=== PATIENT | female | born 1985 | race Caucasian/White ===

== ENCOUNTER → 2017-05-30 | Outpatient (CLI) | payer BC ==
[~2017-05-30] MED LIST: MTR600X PO; OXYC-57 PO; PRENTAB26 PO
[2017-05-30 16:28] LABS: BASO % 0.3 %; BASO ABS # 0.02 K/uL (0-0.2); COMPLETE YES; EOS % 1.3 %; HEMATOCRIT 35.5 % (37-47); IG% 0.1 %; LYMPH % 18.4 %; LYMPH ABS # 1.31 K/uL (1.2-3.4); MEAN CELL VOLUME 87.2 fL (80-100); MEAN CORPUSCULAR HEMOGLOBIN 29.2 pg (25-34); MEAN CORPUSCULAR HGB CONC 33.5 g/dl (32-36); NEUT % 73.9 %; PLATELET COUNT 216 K/uL (130-400); RED BLOOD COUNT 4.07 M/uL (4.2-5.4); WHITE BLOOD COUNT 7.13 K/uL (4.8-10.8)
[2017-05-30 18:01] LABS: URINE APPEARANCE CLEAR (CLEAR); URINE BILIRUBIN NEG (NEG); URINE COLOR YELLOW; URINE NITRITE NEG (NEG); URINE SPECIFIC GRAVITY 1.016 (1.000-1.030); UROBILINOGEN NEG (NEG)
[2017-05-30 18:06] LABS: MANUAL MICROSCOPIC REQUIRED? NO; REVIEW REQ? NO
[2017-06-02 00:58] LABS: CHLAMYDIA TRACH RNA*** NOT DETECTED (NOT DETECTED); GC (NEIS GONORRHOEAE)RNA** NOT DETECTED (NOT DETECTED)
== END | disposition home or self-care (01) ==
LOC: C.LAB1850 15:17
PROVIDERS: ATTEND Obstetrics & Gynecology
DX: Z34.81 Encounter for supervision of other normal pregnancy, first trimester (principal)

== ENCOUNTER → 2017-07-25 | Outpatient (CLI) | payer BC ==
[2017-07-25 19:10] LABS: GTGD 50 Grams
== END | disposition home or self-care (01) ==
LOC: C.LAB1850 13:48
PROVIDERS: ATTEND Obstetrics & Gynecology
DX: Z34.82 Encounter for supervision of other normal pregnancy, second trimester (principal); Z3A.00 Weeks of gestation of pregnancy not specified

== ENCOUNTER → 2017-10-17 | Outpatient (CLI) | payer BC ==
[2017-10-17 18:19] LABS: URINE APPEARANCE CLEAR (CLEAR); URINE BILIRUBIN NEG (NEG); URINE COLOR YELLOW; URINE EPITHELIAL CELL AUTO >30 /lpf (0-5); URINE NITRITE NEG (NEG); URINE SPECIFIC GRAVITY 1.017 (1.000-1.030); UROBILINOGEN NEG (NEG)
[2017-10-17 18:32] LABS: MANUAL MICROSCOPIC REQUIRED? NO; REVIEW REQ? NO
== END | disposition home or self-care (01) ==
LOC: C.LABSPEC 17:23
PROVIDERS: ATTEND Obstetrics & Gynecology
DX: Z34.83 Encounter for supervision of other normal pregnancy, third trimester (principal)

== ENCOUNTER → 2017-10-26 | Outpatient (CLI) | payer BC ==
[2017-10-26 13:09] LABS: HEMATOCRIT 34.3 % (37-47); HEMOGLOBIN 11.6 g/dL (12.0-16.0)
== END | disposition home or self-care (01) ==
LOC: C.LAB1850 10:46
PROVIDERS: ATTEND Obstetrics & Gynecology
DX: Z34.83 Encounter for supervision of other normal pregnancy, third trimester (principal)

== ENCOUNTER → 2017-12-15 | Outpatient (CLI) | payer BC | END | disposition home or self-care (01) | LOC: C.LABSPEC 17:37 | PROVIDERS: ATTEND Obstetrics & Gynecology | DX: Z34.83 Encounter for supervision of other normal pregnancy, third trimester (principal) ==

== ENCOUNTER 2018-01-01 05:18 | Inpatient (IN) | payer BC ==
[2017-12-29 16:14] LABS: BASO % 0.2 %; BASO ABS # 0.02 K/uL (0-0.2); EOS % 0.7 %; EOS ABS # 0.08 K/uL (0-0.5); HEMATOCRIT 34.8 % (37-47); HEMOGLOBIN 12.1 g/dL (12.0-16.0); IG# 0.06 K/uL (0.00-0.02); LYMPH % 14.4 %; LYMPH ABS # 1.61 K/uL (1.2-3.4); MEAN CELL VOLUME 89.5 fL (80-100); MEAN CORPUSCULAR HEMOGLOBIN 31.1 pg (25-34); MEAN CORPUSCULAR HGB CONC 34.8 g/dl (32-36); MONO % 6.1 %; MONO ABS # 0.68 K/uL (0.11-0.59); NEUT % 78.1 %; NEUT ABS # 8.71 K/uL (1.4-6.5); PLATELET COUNT 165 K/uL (130-400); RED CELL DISTRIBUTION WIDTH CV 13.9 % (11.5-14.5); RED CELL DISTRIBUTION WIDTH SD 45.4 fL (36.4-46.3); WHITE BLOOD COUNT 11.16 K/uL (4.8-10.8)
--- NOTE | 2017-12-29 17:23 | HISTORY & PHYSICAL EXAMINATION ---
DATE OF ADMISSION: 01/01/2018 PRINCIPAL DIAGNOSES: Intrauterine at 39 weeks, prior section x2. PRINCIPAL PROCEDURE: Repeat low transverse section. HISTORY OF PRESENT ILLNESS: The patient is a 32-year-old 5, para 2-0-2-2 white female, EDC of 01/06/2018 who presents for repeat section on 01/01/2018 at 39 weeks. First section was done because of a failed vacuum attempt and arrest of descent. She is requesting repeat section after her prior section was done as an elective repeat. has otherwise been uncomplicated. She understands the risks of the procedure, all her questions have been answered and she is willing to proceed. 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 PAST SURGICAL HISTORY: section x2 and ovarian cystectomy done. OBSTETRICAL AND GYNECOLOGICAL HISTORY: Periods are every 25 to 26 days. No history of PID, VD or herpes. Pap smears have been normal. 2009, delivery of a 7 pound 11 ounce viable female by section after failed vacuum attempt in May and in July 2014, there was some miscarriages that were spontaneous and did not require any intervention. 2014, a repeat section at 39 weeks for delivery of an 8 pound 3 ounce female. HISTORY: Blood type is A negative, antibody screen is negative. Rubella is immune. RPR is nonreactive. Hepatitis is negative. HIV is negative. Chlamydia and GC are negative. Glucolas have been within normal limits. Hemoglobin at 28 weeks is 11.6 and hematocrit 34.3. She received RhoGAM on 11/02/2017. GBS is negative. Anatomy scan is complete and normal. SOCIAL HISTORY: She does not smoke or drink. FAMILY HISTORY: Noncontributory. PHYSICAL EXAMINATION: VITAL SIGNS: Blood pressure is 118/74. GENERAL: She is a well-nourished, well-developed female in no apparent distress. LUNGS: Clear to auscultation. HEART: Regular rate and rhythm. No murmurs or gallops. ABDOMEN: Gravid, fundal height of 39 cm. She has a well-healed low transverse skin incision. EXTREMITIES: Without cyanosis or edema. There is no calf tenderness present. PELVIC: Declined. ASSESSMENT: A 32-year-old presenting for repeat section. She has had 2 prior sections. The procedure and risks were discussed with the patient at length and all her questions were answered. Please see the orders for further directions. MTDD
[2018-01-01] VITALS (15 sets, daily range): BP systolic 107–129; BP diastolic 63–76; PULSE 76–91; TEMP 36.8–37.1; O2SAT 96–100; Ht 162.6 cm; Wt 81.7 kg
[~2018-01-01] VITALS: Ht 162.6 cm; Wt 81.7 kg
[~2018-01-01 05:18] MED LIST changes: -MTR600X PO; -OXYC-57 PO
[2018-01-01] MEDS: LACTATED RINGER'S 1000ML 1,000 ML IV SCH ×2 (05:44→06:48)
[2018-01-01 05:46] LABS: BASO % 0.1 %; BASO ABS # 0.01 K/uL (0-0.2); EOS % 0.6 %; EOS ABS # 0.05 K/uL (0-0.5); HEMATOCRIT 35.9 % (37-47); HEMOGLOBIN 11.8 g/dL (12.0-16.0); IG# 0.04 K/uL (0.00-0.02); LYMPH % 15.6 %; LYMPH ABS # 1.36 K/uL (1.2-3.4); MEAN CELL VOLUME 90.2 fL (80-100); MEAN CORPUSCULAR HEMOGLOBIN 29.6 pg (25-34); MEAN PLATELET VOLUME 10.2 fL (7.4-10.4); MONO % 6.3 %; MONO ABS # 0.55 K/uL (0.11-0.59); NEUT % 76.9 %; NEUT ABS # 6.69 K/uL (1.4-6.5); PLATELET COUNT 157 K/uL (130-400); RED CELL DISTRIBUTION WIDTH CV 13.8 % (11.5-14.5); RED CELL DISTRIBUTION WIDTH SD 45.5 fL (36.4-46.3)
[2018-01-01 05:54] LABS: MEAN CORPUSCULAR HGB CONC 32.9 g/dl (32-36)
[2018-01-01] MEDS ORDERED: CITRIC ACID/SODIUM CITRATE 15 ML UDC PO SCH (06:00)
[2018-01-01] MEDS ORDERED: CEFAZOLIN IV 2,000 MG in SYRINGE 0 ML IV SCH (06:00)
[2018-01-01] MEDS ORDERED: MoRPHine SULFATE PF 1 MG/ML 10 ML AMP/VIAL ONE (06:59)
[2018-01-01] MEDS ORDERED: NALOXONE HCL INJ 1 MG in SODIUM CHLORIDE 0.9% 1000ML 1,000 ML IV PRN ×5 (07:14→07:16)
[2018-01-01] MEDS ORDERED: ATROPINE SULFATE 0.1 MG/ML 5ML SYR IV PRN (07:15)
[2018-01-01] MEDS ORDERED: EpHEDrine SULFATE INJ 50 MG/ML AMP IV PRN ×2 (07:15→07:30)
[2018-01-01] MEDS ORDERED: ONDANSETRON INJ 2 MG/ML 2 ML VIAL IV PRN ×2 (07:15→07:30)
[2018-01-01] MEDS ORDERED: MEPERIDINE HCL 25 MG/ML CARP IV PRN ×2 (07:15→07:30)
[2018-01-01] MEDS ORDERED: PHENYLEPHRINE 100MCG/ML 5ML SYR IV PRN (07:15)
[2018-01-01] MEDS ORDERED: KETOROLAC TROMETHAMINE 30 MG/ML VIAL IV. PRN ×2 (07:15→07:30)
[2018-01-01] MEDS ORDERED: LACTATED RINGER'S 1000ML 500 ML IV PRN (07:16)
[2018-01-01] MEDS ORDERED: SODIUM CHLORIDE 0.9% 1000ML 1,000 ML IV PRN (07:16)
[2018-01-01] MEDS ORDERED: NALOXONE HCL INJ 0.08 MG in SYRINGE 1.8 ML IV PRN (07:16)
--- NOTE | 2018-01-01 07:23 | History & Physical Bridge Note ---
H&P Re-Evaluation Bridge Note: I have examined the patient, reviewed the History & Physical and in the interval since the performance of the History & Physical I have noted the following changes of clinical significance: No changes noted
[2018-01-01] MEDS ORDERED: NO NARCOTICS OR SEDATIVES SCH (07:30)
[2018-01-01] MEDS ORDERED: MoRPHine SULFATE PF 1 MG/ML 10 ML AMP/VIAL EPI PRN (07:30)
[2018-01-01] MEDS ORDERED: PROMETHAZINE HCL INJ 12.5 MG in SODIUM CHLORIDE 0.9% 50ML 50 ML IV PRN (07:30)
[2018-01-01] MEDS ORDERED: NALBUPHINE HCL INJ 10 MG/ML AMP IV PRN (07:30)
[2018-01-01] MEDS ORDERED: DiphenhydrAMINE HCL 50 MG/ML VIAL IV PRN (07:30)
[2018-01-01] MEDS ORDERED: NALOXONE HCL 0.4 MG/1 ML VIAL/CARP IV PRN (07:30)
[2018-01-01] MEDS ORDERED: ONDANSETRON INJ 2 MG/ML 2 ML VIAL ONE (07:56)
[2018-01-01] MEDS ORDERED: PHENYLEPHRINE 100MCG/ML 5ML SYR ONE (07:56)
[2018-01-01] MEDS ORDERED: PROPOFOL IV EMULSION 10 MG/ML 20 ML VIAL IV ONE (07:56)
[2018-01-01] MEDS ORDERED: EpHEDrine SULFATE 50MG/5ML SYR ONE (07:56)
[2018-01-01] MEDS ORDERED: METOCLOPRAMIDE HCL INJ 5 MG/ML 2 ML VIAL ONE (07:56)
[2018-01-01] MEDS ORDERED: OXYTOCIN INJ 10 UNITS/ML VIAL ONE (08:20)
[2018-01-01] MEDS ORDERED: LANOLIN OINT EXT PRN ×2 (08:30→11:00)
[2018-01-01] MEDS ORDERED: ACETAMINOPHEN 325 MG TAB PO PRN (08:30)
[2018-01-01] MEDS ORDERED: OXYTOCIN 30 UNITS/500ML NSS IV PRN (08:30)
--- NOTE | 2018-01-01 08:44 | [facility] Post Operative Brief Note ---
Immediate Operative Summary Operative Date Jan 01, 2018. Pre-Operative Diagnosis Term , Previous Caesarean section x 2,desire for repeat Caesarean section Post-Operative Diagnosis same with delivery of living male child at 0801 Procedure(s) Performed Repeat Low Transverse Caesarean Section Surgeon Dr. Paulina Chamorro B2B Account Executive Surgeon(s) Dr. Rosanne Long Estimated Blood Loss 500 Findings Consistent with Post-Op Diagnosis Fluids (cc crystalloids) 3000 Specimens a. placenta- hold b. cord blood specimen Drains Zuniga to stratight drainage Anesthesia Type Spinal Complication(s) none Disposition Accompanied Pt To Recover: no Disposition: L&D
--- NOTE | 2018-01-01 09:58 | OPERATIVE REPORT ---
DATE OF OPERATION: 01/01/2018 SURGEON: Dr. Paulina Lieberman. PROFESSIONAL SERVICES SPECIALIST: Dr. Rosanne Long. PREOPERATIVE DIAGNOSES: Intrauterine at 39 weeks, prior section x2. POSTOPERATIVE DIAGNOSES: Same plus delivery of a viable male infant, 7 pounds 13 ounces, Apgars 9 and 9. OPERATIVE PROCEDURE: Repeat low transverse cervical section. ESTIMATED BLOOD LOSS: 500 mL. ANESTHESIA: Subarachnoid block. HISTORY: The patient is a 32-year-old 5, para 2-0-2-2 white female, EDC of 01/06/2018 who presents for repeat section. Her prior section was done for arrest of descent and a repeat with her last . She understands the risks of procedure and is willing to proceed. GROSS FINDINGS: Uterus is gravid and consistent with a term in size. Bilateral ovaries and fallopian tubes are grossly normal. DESCRIPTION OF PROCEDURE: After the patient received adequate subarachnoid block, she was prepped and draped in the usual sterile fashion. A low transverse skin incision was made through her prior scar and carried to the fascia with the same scalpel. The fascial incision was then extended with Leroy scissors. The underlying rectus muscles were then bluntly and sharply dissected off the overlying fascia. The rectus muscles were bluntly divided along the midline and the underlying peritoneum elevated bluntly. The rectus muscles were divided on the midline with Leroy scissors. The bladder was then taken down off the lower uterine segment and placed behind the bladder blade. The lower uterine segment was entered with the scalpel and extended transversely. Clear fluid was obtained upon entering the uterine cavity. The was delivered with moderate fundal pressure and vacuum assistance. Mouth and nasopharynx were suctioned, there was spontaneous crying and the was vigorous upon delivery. Cord was clamped and cut after reducing a nuchal cord x2. The placenta was then manually removed and the fundus was covered with a clean lap sponge. The uterus was explored and found to be free of any placental tissue or membranes. The uterus was then closed in 2 layers in running locking imbricating fashion with 0 Monocryl. Hemostasis was noted to be excellent. The posterior cul-de-sac was then irrigated with normal saline. The uterus was placed back inside the abdominal cavity. The incision was examined once more and continued to have excellent hemostasis. The gutters were explored and there was scant fluid present in the left lateral gutter. The anterior cul-de-sac was also cleared of some clot. The rectus muscles were then brought together on the midline with individual stitches of 0 Monocryl. The fascia was closed in a running fashion with 0 Vicryl. The skin edges were reapproximated using a subcuticular stitch of 4-0 Vicryl. Urine was clear at the end of the case. Mother and were tolerated the procedure well and was stable upon arrival in recovery room. I attest to the content of the Intraoperative Record and any orders documented therein. Any exceptions are noted below. YASIRD
[2018-01-01] MEDS ORDERED: MAGNESIUM HYDROXIDE SUSP 30 ML UDC PO PRN (11:00)
[2018-01-01] MEDS ORDERED: IBUPROFEN 600 MG TAB PO PRN (11:00)
[2018-01-01] MEDS ORDERED: SENNA 8.6 MG TAB PO PRN (11:00)
[2018-01-01] MEDS: OXYTOCIN INJ 20 UNITS in LACTATED RINGER'S 1000ML 1,000 ML IV SCH ×2 (11:12→19:09)
--- NOTE | 2018-01-01 12:51 | Anesthesiology Progress Note ---
Anesthesia Post Op Note Date & Time Jan 01, 2018 at 12:51 Vital Signs Pain Intensity: 2.0 Vital Signs Past 12 Hours Date Time Temp Pulse Resp B/P (MAP) Pulse Ox O2 Delivery O2 Flow Rate FiO2 01/01/18 12:20 79 14 114/68 (83) 99 Room Air 01/01/18 12:20 14 99 01/01/18 11:20 37.1 76 18 109/71 (84) 98 Room Air 01/01/18 11:20 18 98 01/01/18 11:20 98 Room Air 01/01/18 11:20 98 Room Air Notes Mental Status: alert / awake / arousable, participated in evaluation Pt Amnestic to Procedure: Yes Nausea / Vomiting: adequately controlled Pain: adequately controlled Airway Patency, RR, SpO2: stable & adequate BP & HR: stable & adequate Hydration State: stable & adequate Anesthetic Complications: no major complications apparent
[2018-01-01] MEDS: SIMETHICONE 80 MG CHEW PO SCH ×3 (13:55→20:27)
[2018-01-01] MEDS: DOCUSATE SODIUM 100 MG CAP PO SCH ×2 (20:00→20:27)
[2018-01-01] MEDS: IBUPROFEN 600 MG TAB PO PRN (22:40)
[2018-01-02] MEDS ORDERED: DC INTRASPINAL MORPHINE ONE
[2018-01-02] MEDS ORDERED: ONDANSETRON INJ 2 MG/ML 2 ML VIAL IV PRN
[2018-01-02] MEDS ORDERED: MEPERIDINE HCL 50 MG/ML CARP IV PRN ×2
[2018-01-02] MEDS ORDERED: OXYCODONE/ACETAMINOPHEN 5-325 TAB PO PRN ×2
[2018-01-02] MEDS ORDERED: KETOROLAC TROMETHAMINE 30 MG/ML VIAL IV. PRN
[2018-01-02] MEDS ORDERED: DiphenhydrAMINE HCL 50 MG/ML VIAL IV PRN
[2018-01-02] MEDS ORDERED: PROMETHAZINE HCL INJ 25 MG in SODIUM CHLORIDE 0.9% 50ML 50 ML IV PRN ×2
[2018-01-02] MEDS ORDERED: ZOLPIDEM TARTRATE 5 MG TAB PO PRN
[2018-01-02] MEDS: OXYCODONE/ACETAMINOPHEN 5-325 TAB PO PRN ×5 (00:17→20:19)
[2018-01-02 03:25] VITALS: BP 100/76; PULSE 77; TEMP 36.9
[2018-01-02] MEDS: IBUPROFEN 600 MG TAB PO PRN ×4 (06:15→20:18)
[2018-01-02 06:37] LABS: BASO % 0.2 %; BASO ABS # 0.02 K/uL (0-0.2); EOS ABS # 0.11 K/uL (0-0.5); HEMATOCRIT 32.4 % (37-47); HEMOGLOBIN 11.3 g/dL (12.0-16.0); IG# 0.03 K/uL (0.00-0.02); LYMPH % 13.8 %; LYMPH ABS # 1.52 K/uL (1.2-3.4); MEAN CELL VOLUME 88.3 fL (80-100); MEAN CORPUSCULAR HEMOGLOBIN 30.8 pg (25-34); MEAN CORPUSCULAR HGB CONC 34.9 g/dl (32-36); MEAN PLATELET VOLUME 9.9 fL (7.4-10.4); MONO % 6.5 %; MONO ABS # 0.72 K/uL (0.11-0.59); NEUT % 78.2 %; NEUT ABS # 8.62 K/uL (1.4-6.5); PLATELET COUNT 153 K/uL (130-400); RED CELL DISTRIBUTION WIDTH CV 13.8 % (11.5-14.5); RED CELL DISTRIBUTION WIDTH SD 44.6 fL (36.4-46.3); WHITE BLOOD COUNT 11.02 K/uL (4.8-10.8)
--- NOTE | 2018-01-02 07:49 | Progress Note ---
Subjective Jan 02, 2018. Subjective conversation w/ patient, physical exam Voiding: no voiding problems Passing Gas: Yes Diet Tolerance: Regular Diet Lochia: Moderate Feeding Type: Bottle Feeding Review of Systems Breast: No see HPI, No breast lump, No change in shape, No nipple discharge, No breast pain, No problem reported Female : No see HPI, No dysuria, No urinary frequency, No hematuria, No incontinence, No abnormal vaginal bleeding, No vaginal discharge, No problem reported Objective Vital Signs Date Time Temp Pulse Resp B/P (MAP) Pulse Ox O2 Delivery O2 Flow Rate FiO2 01/02/18 03:25 36.9 77 18 100/76 (84) Room Air 01/01/18 23:55 37.0 82 18 114/74 (87) 96 Room Air 01/01/18 23:55 99 Room Air 01/01/18 23:20 18 99 01/01/18 22:20 18 97 01/01/18 21:20 18 97 01/01/18 20:20 18 96 01/01/18 20:20 36.8 79 18 108/72 (84) 96 Room Air 01/01/18 19:20 18 97 01/01/18 18:20 16 100 01/01/18 17:20 18 99 01/01/18 16:20 18 100 01/01/18 16:00 36.9 91 18 107/63 (78) 100 Room Air 01/01/18 16:00 100 Room Air 01/01/18 16:00 18 100 01/01/18 15:20 16 99 01/01/18 14:20 88 18 129/74 (92) 100 Room Air 01/01/18 14:20 18 100 01/01/18 13:20 87 16 122/76 (91) Room Air 01/01/18 13:20 16 100 01/01/18 12:20 79 14 114/68 (83) 99 Room Air 01/01/18 12:20 14 99 01/01/18 11:20 37.1 76 18 109/71 (84) 98 Room Air 01/01/18 11:20 18 98 01/01/18 11:20 98 Room Air 01/01/18 11:20 98 Room Air Physical Exam General Appearance: WELL-APPEARING, NO APPARENT DISTRESS Abdomen: soft Fundus: Firm, Non-Tender, Relation to Umbilicus (2 below U) Incision Description: Clean, Dry & Intact Extremities: no calf tenderness Laboratory Results Last 24 Hours Test 01/02/18 06:15 White Blood Count 11.02 K/uL Red Blood Count 3.67 M/uL Hemoglobin 11.3 g/dL Hematocrit 32.4 % Mean Corpuscular Volume 88.3 fL Mean Corpuscular Hemoglobin 30.8 pg Mean Corpuscular Hemoglobin Concent 34.9 g/dl Platelet Count 153 K/uL Mean Platelet Volume 9.9 fL Neutrophils (%) (Auto) 78.2 % Lymphocytes (%) (Auto) 13.8 % Monocytes (%) (Auto) 6.5 % Eosinophils (%) (Auto) 1.0 % Basophils (%) (Auto) 0.2 % Neutrophils # (Auto) 8.62 K/uL Lymphocytes # (Auto) 1.52 K/uL Monocytes # (Auto) 0.72 K/uL Eosinophils # (Auto) 0.11 K/uL Basophils # (Auto) 0.02 K/uL RDW Standard Deviation 44.6 fL RDW Coefficient of Variation 13.8 % Immature Granulocyte % (Auto) 0.3 % Immature Granulocyte # (Auto) 0.03 K/uL Assessment and Plan Day#: 1 Continue Routine Care: stable post-op course continue current care plan
[2018-01-02 08:19] VITALS: BP 110/73; PULSE 77; TEMP 36.8; O2SAT 96
[2018-01-02] MEDS: DOCUSATE SODIUM 100 MG CAP PO SCH ×2 (08:30→20:15)
[2018-01-02] MEDS: SIMETHICONE 80 MG CHEW PO SCH ×4 (08:30→20:18)
[2018-01-02 08:46] VITALS: O2SAT 96
--- NOTE | 2018-01-02 11:28 | Anesthesiology Progress Note ---
Anesthesia Post Op Note Date & Time Jan 02, 2018 at 11:27 Vital Signs Pain Intensity: 6.0 Vital Signs Past 12 Hours Date Time Temp Pulse Resp B/P (MAP) Pulse Ox O2 Delivery O2 Flow Rate FiO2 01/02/18 08:46 96 Room Air 01/02/18 08:19 36.8 77 110/73 (85) 96 Room Air 01/02/18 03:25 36.9 77 18 100/76 (84) Room Air 01/01/18 23:55 37.0 82 18 114/74 (87) 96 Room Air 01/01/18 23:55 99 Room Air Notes Awake, alert, satisfied with anesthesia care. VSS.
[2018-01-02 12:45] VITALS: BP 99/67; PULSE 78; TEMP 36.7; O2SAT 98
[2018-01-02 15:30] VITALS: BP 112/74; PULSE 82; TEMP 36.7; O2SAT 97
[2018-01-02] MEDS ORDERED: BISACODYL 5 MG TABEC PO SCH (20:00)
[2018-01-02] MEDS ORDERED: BISACODYL 5 MG TABEC PO ONE (22:00)
[2018-01-03 00:50] VITALS: BP 105/68; PULSE 84; TEMP 36.7
[2018-01-03] MEDS: IBUPROFEN 600 MG TAB PO PRN ×3 (06:09→16:52)
[2018-01-03] MEDS: OXYCODONE/ACETAMINOPHEN 5-325 TAB PO PRN ×3 (06:10→16:51)
--- NOTE | 2018-01-03 06:20 | OB/GYN Progress Note ---
INTERVENTIONAL TECHNOLOGIST Progress Note Date of Service Jan 03, 2018. Subjective conversation w/ patient, physical exam Ambulation: ambulating normally Voiding: no voiding problems Passing Gas: Yes Diet Tolerance: Regular Diet Lochia: Moderate Feeding Type: Bottle Feeding Pain: controlled Review of Systems Constitutional: No problem reported Respiratory: No problem reported Cardiac: No problem reported Breast: No problem reported Abdomen: No problem reported Female : No problem reported Objective Vital Signs Date Time Temp Pulse Resp B/P (MAP) Pulse Ox O2 Delivery O2 Flow Rate FiO2 01/03/18 00:50 36.7 84 16 105/68 (80) Room Air 01/03/18 00:50 Room Air 01/02/18 15:30 97 Room Air 01/02/18 15:30 36.7 82 18 112/74 (87) 97 Room Air 01/02/18 12:45 36.7 78 20 99/67 (78) 98 Room Air 01/02/18 08:46 96 Room Air 01/02/18 08:19 36.8 77 110/73 (85) 96 Room Air 01/02/18 07:55 Room Air Physical Exam General Appearance: WELL-APPEARING, NO APPARENT DISTRESS Respiratory/Chest: no respiratory distress Cardiovascular: regular rate, rhythm Abdomen: non tender, soft Fundus: Firm Incision Description: Clean, Dry & Intact Extremities: normal inspection Assessment and Plan Post-Op Day Number: 2 Continue Routine Care: Doing well POD#2. Anticipate discharge home tomorrow.
[2018-01-03] MEDS ORDERED: OXYC-57 PO (09:02)
[2018-01-03] MEDS: SIMETHICONE 80 MG CHEW PO SCH ×4 (09:16→19:46)
[2018-01-03] MEDS: DOCUSATE SODIUM 100 MG CAP PO SCH ×3 (09:17→20:00)
[2018-01-03 09:32] VITALS: BP 119/73; PULSE 79; TEMP 37; O2SAT 98
[2018-01-03 15:16] VITALS: BP 110/71; PULSE 79; TEMP 36.6; O2SAT 98
--- NOTE | 2018-01-03 22:02 | Discharge Instructions ---
Discharge Instructions Date of Service Jan 03, 2018. Admission Reason for Admission: with Hx of Section Discharge Discharge Diagnosis / Problem: after delivery Discharge Goals Goal(s): Routine recovery after Medications Continue Dispensed Medications: supercream, dermaplast, tucks, lansinoh Activity Recommendations Activity Limitations: as noted below ACTIVITY RECOMMENDATIONS: * Gradual return to full activity over the next 2-3 weeks. * No lifting - nothing heavier than baby over the next 2-3 weeks. * Do not engage in vigorous exercise, sexual activity or sports until cleared by your physician. * Do not drive or operate any motorized equipment until cleared by your physician. * You may shower/bathe daily. MEDICATIONS: For discomfort or pain, you may use Acetaminophen (Tylenol), Ibuprofen (Advil), or Naproxen (Aleve) following the package directions. For constipation you may use Colace following the package directions. BREAST CARE: If you are not breast feeding: * Wear a supportive bra 24 hours a day for one to two weeks. * Avoid stimulating your breasts and nipples as much as possible during the first few weeks after delivery. * When taking a shower, have the warm water hit your back, not breasts. * When your breasts feel full, apply ice packs. Usually three to four times a day helps ease the discomfort. * Take a mild pain medication (Tylenol / Motrin) when you are uncomfortable. If breast feeding: * Use breast milk to lubricate nipples. Lansinoh cream may be used for sore nipples. You do not need to remove cream prior to breast feeding. If using a different brand of cream, check the label for directions regarding removal of cream prior to nursing. * Wear a supportive bra. * If having problems with breasts or breast feeding, call a bridal consultant or your health care provider. SPECIAL CARE INSTRUCTIONS: When you are discharged from the hospital, it is important for you to follow the instructions listed below: * During the first week at home, you should be able to care for yourself and your baby. In addition, the usual light household activities are encouraged. * Limit your activities to the way you feel. Do not try to clean the house or move furniture. Be sensible. * If you actively engage in sports and have done so up until the time of your delivery, you may resume these activities as soon as you feel able. This may take up to one month or even longer. Use good judgment. * Continue to take your vitamins for at least six weeks after the of your baby. * Your diet need not be limited unless you were on a special diet before your delivery. Breast-feeding mothers need around 2500 calories per day and at least 64-80 ounces of fluid per day (8 to 10 glasses). * You should eat foods from the four major food groups. Crash diets or fad diets are to be avoided. Eating lean meats, fresh fruits and vegetables, low-fat dairy products, high fiber foods and a regular exercise program, will help you get back to your pre- weight without putting your health at risk. * Constipation is sometimes a problem after delivery. Take a mild laxative as needed. If breast feeding, Milk of Magnesia is acceptable to use. You may use a suppository or Fleets enema. * A daily shower or tub bath is suggested. Wash incision daily with warm soapy water and pat dry. It doesn't need to be covered unless drainage is present. * A bloody vaginal discharge will usually continue until around four weeks . A small amount of bleeding may continue for as long as six weeks. Vaginal discharge changes from the bright red bleeding after delivery to pink then brownish and finally yellowish-pink before becoming white and disappearing. * Bleeding may increase with activity. Your first period may come in 4-8 weeks. If you are breast feeding, your period may be delayed even longer. * [place] (sex) can begin whenever both you and your partner feel comfortable and do not have any form of genital infection. It is recommended that you wait at least six weeks for internal and external healing to occur. If you have questions, please talk to your health care practitioner. A condom should be used to prevent infection and . * Foreplay, gentle intercourse and lubrication is very important the first several times to prevent pain. A water-based lubricant such as K-Y jelly or Astroglide may be used. * If you have RH negative blood and your baby is RH positive, you will receive RHOGAM by injection prior to discharge. The nurse will give you a card to keep with you that has the date and place that you received RHOGAM after delivery. * During your care, you had a Rubella screen done to check for the presence of rubella antibodies in your blood. If your test was negative, you will receive a Rubella vaccine prior to discharge. This vaccine may cause a fever, soreness at the injection site and flu-like symptoms. If these symptoms persist, notify your health care practitioner. is not advised for one month after a Rubella vaccine. * Verbalizes understanding of car seat law as reviewed with patient nursing. * Car Seat hand-out given and reviewed with patient by nursing. * Shaken baby information reviewed with patient by nursing. Call you doctor if: * Heavy bleeding (saturating several pads an hour) or passing clots the size of your fist. * A fever >101 degrees F (38.3 degrees C) on two occasions four hours apart and /or chills. * Unusual pain in the pelvic or vaginal areas. * Call the doctor for any increased redness, drainage or swelling around the incision and any pain unrelieved by prescribed pain medication. * "Baby Blues" lasting longer than two weeks. If you have any questions or concerns, call your health care practitioner at . FOLLOW UP VISIT: * Please call the office at to schedule a 6 week examination. It is important you keep this appointment. It is important for you to make arrangements for either yearly or twice yearly check-ups thereafter. . Current Hospital Diet Patient's current hospital diet: Regular OB Diet Discharge Diet Recommended Diet: Regular Diet Procedures Procedures Performed: Repeat Low Transverse Caesarean Section Pending Studies Studies pending at discharge: no Medical Emergencies . Who to Call and When: Medical Emergencies: If at any time you feel your situation is an emergency, please call [phone] immediately. . Non-Emergent Contact Non-Emergency issues call your: [employer] . . "Provider Documentation" section prepared by Sherri Boyer. .
[2018-01-03 23:25] VITALS: BP 106/70; PULSE 68; TEMP 36.5; O2SAT 98
[2018-01-04] MEDS: OXYCODONE/ACETAMINOPHEN 5-325 TAB PO PRN ×3 (03:25→12:31)
[2018-01-04 07:20] VITALS: BP 116/75; PULSE 85; TEMP 36.9; O2SAT 99
--- NOTE | 2018-01-04 08:09 | Progress Note ---
Subjective Jan 04, 2018. Subjective conversation w/ patient, physical exam Ambulation: ambulating normally Voiding: no voiding problems Passing Gas: Yes Diet Tolerance: Regular Diet Lochia: Small Feeding Type: Breast Feeding Pain: no pain issues, using pain meds. Objective Vital Signs Date Time Temp Pulse Resp B/P (MAP) Pulse Ox O2 Delivery O2 Flow Rate FiO2 01/03/18 23:25 98 Room Air 01/03/18 23:25 36.5 68 16 106/70 (82) 98 Room Air 01/03/18 15:16 98 Room Air 01/03/18 15:16 36.6 79 18 110/71 (84) 98 Room Air 01/03/18 09:32 37.0 79 20 119/73 (88) 98 Room Air Physical Exam General Appearance: WELL-APPEARING, WD/WN, NO APPARENT DISTRESS Respiratory/Chest: lungs clear Cardiovascular: regular rate, rhythm Abdomen: non tender, soft Fundus: Firm, Relation to Umbilicus (2 down) Incision Description: Clean, Dry & Intact Extremities: non-tender Assessment and Plan Post-Op Day#: 3 Continue Routine Care: stable, d/c home, instructions reviewed. f/u 6 wks pp check. has percocet script already from Dr. Collado.
[2018-01-04] MEDS: DOCUSATE SODIUM 100 MG CAP PO SCH (08:48)
[2018-01-04] MEDS: SIMETHICONE 80 MG CHEW PO SCH ×2 (08:48→12:30)
[2018-01-04] MEDS: IBUPROFEN 600 MG TAB PO PRN ×2 (08:49→12:31)
[2018-01-04 13:05] VITALS: BP_DIAS 75; PULSE 85; TEMP 36.9
== END 2018-01-04 13:05 | disposition home or self-care (01) | DRG 766 ==
LOC: C.LD 05:18 → EDSTATUS 07:30 → C.OBG 12:24
PROVIDERS: ADMIT Obstetrics & Gynecology; ATTEND Obstetrics & Gynecology
PROC: 10D00Z1 Extraction of Products of Conception, Low, Open Approach (ICD-10-PCS; principal; 2018-01-01 07:30)
DX: O34.211 Maternal care for low transverse scar from previous cesarean delivery (principal); N85.8 Other specified noninflammatory disorders of uterus; O66.5 Attempted application of vacuum extractor and forceps; O69.81X0 Labor and delivery complicated by cord around neck, without compression, not applicable or unspecified; O99.02 Anemia complicating childbirth; D64.9 Anemia, unspecified; O99.214 Obesity complicating childbirth; E66.9 Obesity, unspecified; Z68.31 Body mass index [BMI] 31.0-31.9, adult; Z3A.39 39 weeks gestation of pregnancy; Z37.0 Single live birth; Z86.69 Personal history of other diseases of the nervous system and sense organs; Z88.7 Allergy status to serum and vaccine; Z88.8 Allergy status to other drugs, medicaments and biological substances